=== PATIENT | male | born 1965 | race Caucasian/White ===

== ENCOUNTER 2016-12-05 22:28 | Inpatient (IN) | payer BC ==
[2016-12-05] MEDS ORDERED: PIPERACILLIN-TAZOBACTAM 3.375 GM in DEXTROSE/WATER 1 50ML.BAG IVPB STA (22:54)
--- NOTE | 2016-12-05 22:54 | ED ---
General Adult HPI - General Chief complaint: Extremity Problem,Nontraumatic Stated complaint: left leg infection Time Seen by Provider: 12/05/16 22:38 Source: patient, family, RN notes reviewed Mode of arrival: ambulatory Limitations: no limitations - History of Present Illness Initial comments: Patient is a pleasant 51-year-old male presenting to the emergency Department with concerns for left leg infection. Patient has had some discomfort for the past 3 days. Patient has had fevers. No rash this morning however patient did notice a rash after work this evening. Patient does have a history of leg injury with ventura placement in the tibia years ago. Patient has a history of bone infection on the right leg previously. - Related Data Home Medications Medication Instructions Recorded Confirmed Ezetimibe [Zetia] 10 mg PO DAILY 12/05/16 12/05/16 Insulin Aspart [NovoLOG Flexpen] See Protocol SQ ACHS 12/05/16 12/05/16 Insulin Glargine,Hum.rec.anlog 18 unit SQ HS 12/05/16 12/05/16 [Lantus Solostar] Insulin Glargine,Hum.rec.anlog 28 unit SQ QAM 12/05/16 12/05/16 [Lantus Solostar] Levothyroxine Sodium [Synthroid] 50 mcg PO DAILY 12/05/16 12/05/16 Losartan-Hctz 50-12.5 mg [Hyzaar 1 tab PO DAILY 12/05/16 12/05/16 50-12.5] Rosuvastatin Calcium [Crestor] 5 mg PO DAILY 12/05/16 12/05/16 Allergies Allergy/AdvReac Type Severity Reaction Status Date / Time morphine AdvReac Hallucinati Verified 12/05/16 23:05 ons Review of Systems ROS Statement: Those systems with pertinent positive or pertinent negative responses have been documented in the HPI. ROS Other: All systems not noted in ROS Statement are negative. Constitutional: Reports: fever Eyes: Denies: eye pain ENT: Denies: ear pain Respiratory: Denies: cough Cardiovascular: Denies: chest pain Endocrine: Denies: fatigue Gastrointestinal: Denies: abdominal pain Genitourinary: Denies: dysuria Musculoskeletal: Denies: back pain Skin: Reports: rash Neurological: Denies: weakness Past Medical History Past Medical History: CVA/TIA, Diabetes Mellitus History of Any Multi-Drug Resistant Organisms: None Reported Past Surgical History: Orthopedic Surgery Past Psychological History: No Psychological Hx Reported Smoking Status: Never smoker Past Alcohol Use History: Occasional Past Drug Use History: None Reported - Past Family History Father Family Medical History: No Reported History Mother Family Medical History: No Reported History maternal grandfather Family Medical History: Diabetes Mellitus Additional Family Medical History / Comment(s): General Exam Limitations: no limitations General appearance: alert, in no apparent distress Head exam: Present: atraumatic Eye exam: Present: normal appearance, PERRL ENT exam: Present: normal oropharynx Neck exam: Present: normal inspection Respiratory exam: Present: normal lung sounds bilaterally Cardiovascular Exam: Present: regular rate, normal rhythm GI/Abdominal exam: Present: soft. Absent: tenderness Extremities exam: Present: tenderness. Absent: calf tenderness Neurological exam: Present: alert Psychiatric exam: Present: normal affect, normal mood Skin exam: Present: erythema (Left lower leg erythema extending up to the knee. There is lymphangitic streaking to the mid thigh.) Course Vital Signs 12/05/16 22:31 Temperature 97.5 F L Pulse Rate 90 Respiratory 18 Rate Blood Pressure 134/63 O2 Sat by Pulse 97 Oximetry Medical Decision Making - Medical Decision Making Patient was updated on diagnosis and plan. Case was discussed in detail with Dr. gonzales, who will admit for Dr. Lawrence. Patient does not meet sepsis criteria - Lab Data Result diagrams: 12/05/16 23:30 12/05/16 23:30 - Radiology Data Radiology results: image reviewed (X-ray left leg cellulitis some soft tissue swelling which may represent cellulitis. Old fracture and ventura present.) Disposition Clinical Impression: Cellulitis Disposition: ADMITTED IP TO THIS HOSP
[2016-12-05] MEDS ORDERED: IV VANCOMYCIN PER PHARMACY 1 EACH MISC MISCELLANE PRN (23:01)
[2016-12-05] MEDS ORDERED: HYDROcodone/APAP 5-325MG 1 EACH TAB PO PRN (23:02)
[2016-12-05] MEDS ORDERED: ACETAMINOPHEN TAB 325 MG TAB PO PRN (23:02)
[2016-12-05] MEDS ORDERED: IBUPROFEN 400 MG TAB PO PRN (23:02)
[2016-12-05] MEDS ORDERED: NALOXONE 0.4 MG/ML 1 ML VIAL IV PRN (23:02)
[2016-12-05] MEDS ORDERED: VANCOMYCIN 1,500 MG in SODIUM CHLORIDE 0.9% 250 ML IVPB ONE (23:15)
[2016-12-05] MEDS: SODIUM CHLORIDE 0.9% 1,000 ML IV STA (23:36)
--- NOTE | 2016-12-05 23:40 | XR ---
EXAM: XR Left Tibia and Fibula, 2 Views. CLINICAL HISTORY: Reason: Cellulitis TECHNIQUE: Frontal and lateral views of the left tibia and fibula. COMPARISON: No relevant prior studies available. FINDINGS: Bones/joints: Old healed tibial fracture affixed by intramedullary ventura. Old healed distal fibular fracture. No evidence of acute fracture or dislocation. No bone erosive or bony destructive changes identified. Soft tissues: Diffuse Soft tissue swelling and subcutaneous edematous changes. There are arterial vascular calcifications. IMPRESSION: Old healed fractures. No acute fracture or dislocation. No bony erosive or bony destructive changes. Soft tissue swelling and subcutaneous edema which may reflect cellulitis.
[2016-12-06 00:02] LABS: Glucose,Whole Blood 296 mg/dL (75-99)
[2016-12-06 00:02] LABS: ALT 48 U/L (21-72); AST 31 U/L (17-59); Alkaline Phosphatase 93 U/L (38-126); Anion Gap 11 mmol/L; Blood Urea Nitrogen 28 mg/dL (9-20); Calcium 9.7 mg/dL (8.4-10.2); Carbon Dioxide 28 mmol/L (22-30); Chloride 99 mmol/L (98-107); Glucose 320 mg/dL (74-99); INR 0.9 (<1.1); Non-African American GFR(MDRD) 59 (>60 ml/min/1.73 sqM); Partial Thromboplastin Time 22.3 sec (22.0-30.0); Potassium 4.5 mmol/L (3.5-5.1); Prothrombin Time 9.5 sec (9.0-12.0); Sodium 138 mmol/L (137-145); Total Bilirubin 0.3 mg/dL (0.2-1.3); Total Protein 6.8 g/dL (6.3-8.2)
[2016-12-06 00:10] LABS: Basophils # (A) 0.1 k/uL (0-0.2); Basophils % (A) 1 %; CH 28.7; CHCM 34.1; Eosinophils # (A) 0.1 k/uL (0-0.7); Eosinophils % (A) 1 %; HCT 35.9 % (39.0-53.0); HDW 2.43; HGB 11.6 gm/dL (13.0-17.5); Luc # (Auto) 0.41; Luc % (Auto) 5; Lymphocytes # (A) 1.7 k/uL (1.0-4.8); Lymphocytes % (A) 19 %; MCH 27.4 pg (25.0-35.0); MCHC 32.5 g/dL (31.0-37.0); MCV 84.5 fL (80.0-100.0); Mean Platelet Volume 6.7; Monocytes # (A) 0.6 k/uL (0-1.0); Monocytes % (A) 6 %; Neutrophils # (A) 6.3 k/uL (1.3-7.7); Neutrophils % (A) 68 %; RBC 4.25 m/uL (4.30-5.90); WBC 9.2 k/uL (3.8-10.6); WBC (Perox) 9.97
[2016-12-06 00:16] VITALS: BMI 28.3
[2016-12-06] MEDS: SODIUM CHLORIDE 0.9% 1,000 ML IV SCH ×3 (01:50→18:24)
[2016-12-06] MEDS: SODIUM CHLORIDE 0.9% 1,000 ML IV STA (01:50)
[2016-12-06 02:02] LABS: Appearance,Urine Clear (Clear); Bilirubin,Urine Negative (Negative); Glucose,Urine (UA) 4+ (Negative); Ketones,Urine Negative (Negative); Leukocyte Esterase,Urine Negative (Negative); Nitrite,Urine Negative (Negative); PH, Urine 5.5 (5.0-8.0); Protein,Urine Trace (Negative); Specific Gravity,Urine 1.014 (1.001-1.035); UA Billing (MACRO vs. MICRO) CHEM; Urobilinogen,Urine <2.0 mg/dL (<2.0)
[2016-12-06 03:36] LABS: Glucose,Whole Blood 76 mg/dL (75-99)
[2016-12-06] MEDS ORDERED: DEXTROSE 50%-WATER 50 ML SYRINGE IVP ONE (06:37)
[2016-12-06 06:53] LABS: Glucose,Whole Blood 60 mg/dL (75-99)
[2016-12-06 07:05] LABS: Glucose,Whole Blood 113 mg/dL (75-99)
[2016-12-06] MEDS: PIPERACILLIN-TAZOBACTAM 3.375 GM in DEXTROSE/WATER 1 50ML.BAG IVPB SCH ×2 (07:49→19:04)
[2016-12-06 10:52] LABS: Aty Lym Flag Slight; CH 28.4; HCT 34.3 % (39.0-53.0); HDW 2.38; HGB 11.4 gm/dL (13.0-17.5); MCH 28.8 pg (25.0-35.0); MCHC 33.3 g/dL (31.0-37.0); MCV 86.4 fL (80.0-100.0); RBC 3.96 m/uL (4.30-5.90); WBC 6.8 k/uL (3.8-10.6); WBC (Perox) 7.28
[2016-12-06 11:34] LABS: Glucose,Whole Blood 185 mg/dL (75-99)
[2016-12-06 12:12] LABS: Add Differential Manual Differential
[2016-12-06 12:13] LABS: Nucleated Red Blood Cells 0 /100 WBC (0-0); Total Cells Counted 100
[2016-12-06 12:14] LABS: Manual Review Performed; RBC Morphology Normal
[2016-12-06] MEDS: EZETIMIBE 10 MG TAB PO SCH (16:42)
[2016-12-06] MEDS: ATORVASTATIN 10 MG TAB PO SCH (16:42)
[2016-12-06] MEDS: LEVOTHYROXINE 50 MCG TAB PO SCH (16:43)
[2016-12-06] MEDS: LOSARTAN-HCTZ 50-12.5 MG 1 EACH TAB PO SCH (16:43)
[2016-12-06] MEDS: VANCOMYCIN 1,500 MG in SODIUM CHLORIDE 0.9% 250 ML IVPB SCH (16:46)
[2016-12-06 17:05] LABS: Glucose,Whole Blood 197 mg/dL (75-99)
[2016-12-06] MEDS: Insulin Aspart [Novolog Flexpen] SQ SCH ×2 (18:02→21:39)
[2016-12-06] MEDS: ENOXAPARIN 40 MG/0.4 ML SYRINGE SQ SCH (19:04)
[2016-12-06 20:47] LABS: Glucose,Whole Blood 171 mg/dL (75-99)
[2016-12-06] MEDS: INSULIN GLARGINE 100 UNIT/ML 10 ML VIAL SQ SCH (21:36)
--- NOTE | 2016-12-06 22:46 | HP ---
DATE OF ADMISSION: 12/05/2016 PRESENTING COMPLAINT: Cellulitis, left leg. HISTORY OF PRESENTING COMPLAINT: This is a very pleasant 51-year-old patient of Dr. Marco Antonio Thomson with known history of diabetes mellitus, type 2; also had a vascular defect at that had a brain bleed, leaving the patient with some numbness in the left side of the cheek and some trouble with his balance. 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 Patient presented with 4 days of fever, 1 day of extreme redness in the left lower extremity. Patient has rather dry and broken-down skin in the area of the knee. Patient's skin was marked off with a skin pencil. He was put on IV Zosyn and vancomycin, with some reduction since presentation. Patient had pain and swelling in the left lower extremity. REVIEW OF SYSTEMS: CONSTITUTIONAL: Febrile. HEENT: None. RESPIRATORY: None. CARDIOVASCULAR: None. GASTROINTESTINAL: None. GENITOURINARY: None. MUSCULOSKELETAL: As above. DERMATOLOGICAL: As above. LYMPHATIC: None. PSYCHIATRY: None. NEUROLOGICAL: Numbness and poor balance, as above. PAST MEDICAL HISTORY: 1. Diabetes mellitus, type 2. 2. Antibiotic ventura in the right lower extremity. 3. Titanium ventura in the left lower extremity. 4. 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 PAST SURGICAL HISTORY: As above. SOCIAL HISTORY: Patient is a builder. Does not smoke. Alcohol occasionally. FAMILY HISTORY: Reviewed; non-contributory to presentation. HOME MEDICATIONS: 1. Crestor 5 mg a day. 2. Hyzaar 50/12.5 one tablet p.o. daily. 3. Synthroid 50 mcg p.o. daily. 4. NovoLog FlexPen. 5. Insulin Lantus 18 units subcutaneously at bedtime; 28 units in the morning. 6. Zetia 10 mg p.o. daily. ALLERGIES: MORPHINE. PHYSICAL EXAMINATION: VITAL SIGNS ON PRESENTATION: Temperature 97.5, pulse 90, respiration 18, blood pressure 134/63, pulse ox 97% on room air. GENERAL APPEARANCE: Average build. Sitting up. Not in distress. EYES: Pupils equal. Conjunctivae normal. HEENT: Oral cavity normal. NECK: JVD not raised. Mass not palpable. RESPIRATORY: Effort normal. Lungs are clear. CARDIOVASCULAR: First and second sounds normal. No edema. ABDOMEN: Soft, nontender. Liver and spleen not palpable. LYMPHATIC: No lymph node palpable in neck or axillae. PSYCHIATRY: Alert and oriented x3. Mood and affect normal. EXTREMITIES: Redness on the lower extremity extending to both above and below the knee. There is callus formation around the left knee and the skin is marked; the redness actually decreased. There is swelling of the left leg compared to the right. Some tenderness is present. Also there are chronic skin changes, right lower extremity. INVESTIGATIONS: White count 9.2, hemoglobin 11.6, potassium 4.5. BUN 28, creatinine 1.30. Accu-Cheks 320, 296. ASSESSMENT: 1. Acute severe cellulitis of the left lower extremity from breakdown of the skin, probably the portal of entry around the left knee with a callus there. 2. Acute renal failure versus chronic element. Will check to see how the renal function does with hydration. 3. Diabetes mellitus, type 2, chronically on insulin. 4. History of brain bleed 3 years ago from a vascular defect, leaving residual numbness of the left jaw and the left mouth. PLAN: Patient was put on IV Zosyn and vancomycin in the ER. Home dose of insulin is on board. Patient does take Apidra. Patient can take the same. Patient will be aggressively hydrated. Will repeat the renal function in the morning. We will also check patient's UA; it did show trace protein; that may be more suggestive of chronic kidney disease. Care was discussed with the patient. He will need at least 48 hours of hospital IV antibiotics. Will also use topical Silvadene with Kerlix and Gilbert wrap.
[2016-12-07] MEDS: PIPERACILLIN-TAZOBACTAM 3.375 GM in DEXTROSE/WATER 1 50ML.BAG IVPB SCH ×3 (00:53→17:31)
[2016-12-07] MEDS: VANCOMYCIN 1,500 MG in SODIUM CHLORIDE 0.9% 250 ML IVPB SCH ×2 (03:11→13:58)
[2016-12-07] MEDS: SODIUM CHLORIDE 0.9% 1,000 ML IV SCH ×3 (03:12→19:04)
[2016-12-07] MEDS: LEVOTHYROXINE 50 MCG TAB PO SCH (06:27)
[2016-12-07 07:25] LABS: Glucose,Whole Blood 175 mg/dL (75-99)
[2016-12-07 08:39] LABS: Anion Gap 9 mmol/L; Aty Lym Flag Slight; Blood Urea Nitrogen 13 mg/dL (9-20); CH 28.3; Calcium 9.2 mg/dL (8.4-10.2); Carbon Dioxide 27 mmol/L (22-30); Chloride 105 mmol/L (98-107); Glucose 190 mg/dL (74-99); HCT 35.7 % (39.0-53.0); HDW 2.45; HGB 11.7 gm/dL (13.0-17.5); MCHC 32.6 g/dL (31.0-37.0); MCV 85.9 fL (80.0-100.0); Non-African American GFR(MDRD) >60 (>60 ml/min/1.73 sqM); Potassium 4.6 mmol/L (3.5-5.1); RBC 4.16 m/uL (4.30-5.90); RDW 12.9 % (11.5-15.5); Sodium 141 mmol/L (137-145); WBC 6.2 k/uL (3.8-10.6); WBC (Perox) 5.71
[2016-12-07] MEDS: INSULIN GLARGINE 100 UNIT/ML 10 ML VIAL SQ SCH ×2 (09:12→20:38)
[2016-12-07] MEDS: Insulin Aspart [Novolog Flexpen] SQ SCH ×4 (09:15→20:39)
[2016-12-07] MEDS: EZETIMIBE 10 MG TAB PO SCH (09:18)
[2016-12-07] MEDS: ATORVASTATIN 10 MG TAB PO SCH (09:18)
[2016-12-07] MEDS: LOSARTAN-HCTZ 50-12.5 MG 1 EACH TAB PO SCH (09:18)
[2016-12-07] MEDS: ENOXAPARIN 40 MG/0.4 ML SYRINGE SQ SCH (09:18)
[2016-12-07 09:30] LABS: Add Differential Manual Differential
[2016-12-07 09:33] LABS: Nucleated Red Blood Cells 0 /100 WBC (0-0); Total Cells Counted 100
[2016-12-07 09:34] LABS: Manual Review Performed; RBC Morphology Normal
[2016-12-07 12:03] LABS: Glucose,Whole Blood 201 mg/dL (75-99)
[2016-12-07] MEDS ORDERED: VANCOMYCIN TROUGH DUE 1 EACH MISC MISCELLANE ONE (13:00)
[2016-12-07 17:46] LABS: Glucose,Whole Blood 229 mg/dL (75-99)
[2016-12-07 20:36] LABS: Glucose,Whole Blood 227 mg/dL (75-99)
--- NOTE | 2016-12-07 23:01 | PN ---
DATE OF SERVICE: 12/07/2016 PRESENTING COMPLAINT: Cellulitis of the left leg. INTERVAL HISTORY: This is a patient who presented with acute severe cellulitis of the left lower extremity, getting better. Pain and swelling are going down, but still some is present. Overall feeling better. Tolerating a diet. Review of systems done for constitutional, cardiovascular, GI, pulmonary; relevant findings as above. Current medications are reviewed that include IV Zosyn and vancomycin. On examination, temperature 97, pulse 70, respiration 16, blood pressure 136/70, pulse ox 97% on room air. GENERAL APPEARANCE: Sitting up, comfortable. EYES: Pupils equal. Conjunctivae normal. NECK: JVD not raised. Mass not palpable. RESPIRATORY: Effort normal. Lungs are clear. CARDIOVASCULAR: First and second sounds normal. No edema. ABDOMEN: Soft, nontender. Liver and spleen not palpable. PSYCHIATRY: Alert and oriented x3. Mood and affect normal. EXTREMITIES: Redness of the left lower extremity has decreased. Swelling has also gone down. Some tenderness in the prepatellar ( ) but not too bad. INVESTIGATIONS: White count 6.2, potassium 4.6. Blood cultures are negative until now. ASSESSMENT: 1. Acute severe cellulitis, left lower extremity, from breakdown of the skin, probably due to microtrauma, with clinical improvement. 2. Acute renal failure versus chronic element. Appears to be acute renal failure, probably prerenal, as renal function has improved. 3. Diabetes mellitus, type 2, chronically on insulin. 4. History of brain bleed 3 years ago from vascular defect, leaving residual weakness of the left shoulder and left mouth. PLAN: Care was discussed in detail with the patient. Will keep him another 24 hours, since patient has a ventura in the left leg. Continue current treatment plan.
[2016-12-08] MEDS: PIPERACILLIN-TAZOBACTAM 3.375 GM in DEXTROSE/WATER 1 50ML.BAG IVPB SCH ×2 (00:06→08:58)
[2016-12-08] MEDS: VANCOMYCIN 1,500 MG in SODIUM CHLORIDE 0.9% 250 ML IVPB SCH ×2 (04:38→12:40)
[2016-12-08] MEDS: LEVOTHYROXINE 50 MCG TAB PO SCH (06:14)
[2016-12-08 07:19] LABS: Glucose,Whole Blood 179 mg/dL (75-99)
[2016-12-08 08:02] VITALS: BP 128/64; PULSE 66; RESP 18; TEMP 96.1
[2016-12-08] MEDS: SODIUM CHLORIDE 0.9% 1,000 ML IV SCH ×2 (08:47→12:27)
[2016-12-08] MEDS: Insulin Aspart [Novolog Flexpen] SQ SCH ×2 (08:47→12:34)
[2016-12-08] MEDS: LOSARTAN-HCTZ 50-12.5 MG 1 EACH TAB PO SCH (08:49)
[2016-12-08] MEDS: ENOXAPARIN 40 MG/0.4 ML SYRINGE SQ SCH (08:49)
[2016-12-08] MEDS: ATORVASTATIN 10 MG TAB PO SCH (08:49)
[2016-12-08] MEDS: EZETIMIBE 10 MG TAB PO SCH (08:49)
[2016-12-08] MEDS: INSULIN GLARGINE 100 UNIT/ML 10 ML VIAL SQ SCH (08:58)
[2016-12-08 09:38] LABS: Anion Gap 10 mmol/L; Blood Urea Nitrogen 15 mg/dL (9-20); Calcium 9.7 mg/dL (8.4-10.2); Carbon Dioxide 28 mmol/L (22-30); Chloride 102 mmol/L (98-107); Glucose 178 mg/dL (74-99); Non-African American GFR(MDRD) >60 (>60 ml/min/1.73 sqM); Potassium 4.4 mmol/L (3.5-5.1); Sodium 140 mmol/L (137-145)
[2016-12-08 11:16] LABS: Glucose,Whole Blood 246 mg/dL (75-99)
--- NOTE | 2016-12-10 13:47 | DS ---
DATE OF ADMISSION: 12/05/2016 DATE OF DISCHARGE: 12/08/2016 FINAL DIAGNOSES: 1. Acute severe swelling of left lower extremity from breakdown of skin from microtrauma from kneeling. 2. Acute renal failure, acute, prerenal. 3. Diabetes mellitus type 2, chronically on insulin. 4. History of brain bleed 3 years ago from vascular defect leaving residual weakness in the left side of the mouth and left face. HOSPITAL COURSE: This patient presented with cellulitis of left lower extremity. The patient does work on his knees. Cellulitis was both about the knee and below the knee. He responded very well to antibiotics. Blood cultures remain negative. Swelling, tenderness had completely resolved at the time of discharge. Care was discussed in detail with the patient. On exam, ( ) swelling in this leg resolved. DISCHARGE MEDICATIONS: 1. Zetia 10 mg daily. 2. Lantus 80 units subcutaneously at bedtime; 28 units subcu in the morning. 3. Synthroid 50 mcg p.o. daily. 4. Hyzaar 50/12.5, 1 tablet p.o. daily. 5. Crestor 5 mg p.o. daily. 6. Silvadene topical b.i.d. 7. Bactrim DS 1 tablet p.o. q.12, [address] Marco Antonio Thomson on 12/12/16.
== END 2016-12-08 14:25 | disposition home or self-care (01) | DRG 603 ==
LOC: EC 22:28 → 5MS5E 23:02
PROVIDERS: ADMIT Hospitalist; ATTEND Hospitalist
DX: L03.116 Cellulitis of left lower limb (principal); N17.9 Acute kidney failure, unspecified; R20.0 Anesthesia of skin; I69.298 Other sequelae of other nontraumatic intracranial hemorrhage; I69.292 Facial weakness following other nontraumatic intracranial hemorrhage; L84 Corns and callosities; E11.9 Type 2 diabetes mellitus without complications; R50.9 Fever, unspecified; Z86.19 Personal history of other infectious and parasitic diseases; Z83.3 Family history of diabetes mellitus; Z79.899 Other long term (current) drug therapy; Z79.4 Long term (current) use of insulin; Z88.5 Allergy status to narcotic agent; Z87.81 Personal history of (healed) traumatic fracture
CPT/HCPCS: 80048; 80053; 80202; 81003; 82533; 83605; 85025; 85610; 85730; 87040; 96365; 99285